=== PATIENT | female | born 1960 | race African-American/Black ===

== ENCOUNTER → 2019-09-27 | Outpatient (CLI) | payer BC ==
[~2019-09-27] MED LIST: ALLERGY10 M2 PO; LOSARTAN-HCTZ1 EAC2 PO; NIFEDIPINE ER60 M1 PO; NORCO 5-325 TA1 EACH PO; SINGULAIR 10 MG10 M1 PO; ZPAK PO
== END ==
LOC: SJCVCIMAG 07:32
PROVIDERS: ATTEND Internal Medicine
DX: I10 Essential (primary) hypertension (principal); R73.09 Other abnormal glucose; E78.5 Hyperlipidemia, unspecified; Z79.899 Other long term (current) drug therapy